=== PATIENT | female | born 1940 | race Caucasian/White ===

== ENCOUNTER 2017-01-21 09:13 | Inpatient (IN) | payer MEDICARE, OTHER ==
[~2017-01-21] VITALS: Ht 160 cm; Wt 68.1 kg
[2017-01-21] MEDS ORDERED: ATOR80TA75 PO (09:52)
[2017-01-21] MEDS ORDERED: SODIUM CHLORIDE 0.9% 1,000ML IVBOLUS ONE ×3 (10:00→13:30)
[2017-01-21] MEDS ORDERED: FAMOTIDINE 20 MG/2 ML IVP ONE (10:00)
[2017-01-21] MEDS ORDERED: SODIUM CHLORIDE FLUSH 10ML SYR IVF ONE (10:00)
[2017-01-21] MEDS ORDERED: ONDANSETRON 2MG/ML, 2ML IVPush ONE (10:00)
[2017-01-21] MEDS ORDERED: MORPHINE SULFATE 4 MG/ML, 1ML IVPush PRN (10:00)
[2017-01-21 10:29] LABS: HEMOGLOBIN 14.2 g/dL (11.7-16.4)
[2017-01-21] MEDS ORDERED: MORPHINE SULFATE 4 MG/ML, 1ML ONE (10:34)
[2017-01-21] MEDS ORDERED: ONDANSETRON 2MG/ML, 2ML ONE (10:34)
[2017-01-21] MEDS ORDERED: FAMOTIDINE 20 MG/2 ML ONE (10:36)
[2017-01-21 10:37] LABS: BLOOD UREA NITROGEN 22 mg/dL (7-18)
[2017-01-21] MEDS ORDERED: METOCLOPRAMIDE 5 MG/ML, 2ML ONE (11:24)
[2017-01-21] MEDS ORDERED: METOCLOPRAMIDE 5 MG/ML, 2ML IVPush ONE (11:30)
[2017-01-21 15:20] LABS: HEMOGLOBIN 10.1 g/dL (11.7-16.4)
[2017-01-21] MEDS ORDERED: ONDANSETRON 2MG/ML, 2ML IVP PRN (16:00)
[2017-01-21] MEDS ORDERED: ACETAMINOPHEN 325 MG TABLET PO PRN (16:00)
[2017-01-21] MEDS: SODIUM CHLORIDE 0.9% 1,000 ML IV SCH ×3 (16:01→20:50)
[2017-01-21] MEDS ORDERED: OMEP-110 PO (16:04)
[2017-01-21] MEDS: ENOXAPARIN 40 MG/0.4 ML SQ SCH (18:47)
[2017-01-21] MEDS: INSULIN REGULAR 100 UNITS/ML, 3ML VIAL SQ-INSULIN SCH ×2 (18:47→20:50)
[2017-01-21 18:51] VITALS: BP 89/53
[2017-01-21 19:32] VITALS: BP 93/51
[2017-01-21] MEDS: ATORVASTATIN 80 MG TABLET PO SCH (20:49)
[2017-01-22 02:50] VITALS: BP 110/67
[2017-01-22] MEDS: HYDROcodone/APAP 5/325 TABLET PO PRN (05:09)
[2017-01-22 05:39] LABS: HEMOGLOBIN 11.8 g/dL (11.7-16.4)
[2017-01-22 05:47] LABS: BLOOD UREA NITROGEN 12 mg/dL (7-18)
[2017-01-22] MEDS: SODIUM CHLORIDE 0.9% 1,000 ML IV SCH (06:00)
[2017-01-22 07:53] VITALS: BP 96/58
[2017-01-22] MEDS: INSULIN REGULAR 100 UNITS/ML, 3ML VIAL SQ-INSULIN SCH ×4 (08:30→20:53)
[2017-01-22] MEDS: PANTOPROZOLE 40MG TABLET PO SCH (08:34)
[2017-01-22] MEDS ORDERED: POTASSIUM CHLORIDE 20 MEQ TAB.ER.PRT PO ONE (11:00)
[2017-01-22 14:06] VITALS: BP 114/69
[2017-01-22] MEDS: ENOXAPARIN 40 MG/0.4 ML SQ SCH (16:15)
[2017-01-22 19:45] VITALS: BP 125/69
[2017-01-22] MEDS: ATORVASTATIN 80 MG TABLET PO SCH (20:52)
[2017-01-22] MEDS: TRAZODONE 50MG TABLET PO PRN (20:52)
[2017-01-22] MEDS ORDERED: SIMETHICONE 80 MG CHEW TAB PO PRN (21:00)
[2017-01-23 01:12] VITALS: BP 136/66
[2017-01-23 05:43] LABS: BLOOD UREA NITROGEN 9 mg/dL (7-18)
[2017-01-23] MEDS: INSULIN REGULAR 100 UNITS/ML, 3ML VIAL SQ-INSULIN SCH ×2 (07:00→11:00)
[2017-01-23 07:17] VITALS: BP 134/75
[2017-01-23] MEDS: PANTOPROZOLE 40MG TABLET PO SCH (08:06)
[2017-01-23 14:10] VITALS: BP 116/72
[2017-01-23] MEDS: ENOXAPARIN 40 MG/0.4 ML SQ SCH (16:08)
[2017-01-23] MEDS: HYDROcodone/APAP 5/325 TABLET PO PRN (16:09)
[2017-01-23] MEDS ORDERED: LOPERAMIDE 2 MG CAPSULE PO ONE (18:30)
[2017-01-23] MEDS ORDERED: LOPERAMIDE 2 MG CAPSULE PO PRN (18:30)
[2017-01-23 18:51] VITALS: BP 129/73
[2017-01-23] MEDS: TRAZODONE 50MG TABLET PO PRN (21:19)
[2017-01-23] MEDS: ATORVASTATIN 80 MG TABLET PO SCH (21:19)
[2017-01-23] MEDS: POTASSIUM CHLORIDE 20 MEQ TAB.ER.PRT PO SCH (21:19)
[2017-01-24 01:51] VITALS: BP 107/66
[2017-01-24 05:12] LABS: HEMOGLOBIN 11.7 g/dL (11.7-16.4)
[2017-01-24 05:25] LABS: BLOOD UREA NITROGEN 13 mg/dL (7-18)
[2017-01-24 05:28] LABS: ASPARTATE AMINO TRANSFERASE 29 U/L (15-37)
[2017-01-24 07:29] VITALS: BP 100/63
[2017-01-24] MEDS: POTASSIUM CHLORIDE 20 MEQ TAB.ER.PRT PO SCH ×3 (08:22→17:00)
[2017-01-24 13:04] VITALS: BP 133/80
[2017-01-24] MEDS: ENOXAPARIN 40 MG/0.4 ML SQ SCH (16:00)
[2017-01-24 20:10] VITALS: BP 105/64
[2017-01-24] MEDS: ATORVASTATIN 80 MG TABLET PO SCH (20:46)
[2017-01-24] MEDS: TRAZODONE 50MG TABLET PO PRN (22:23)
[2017-01-25 02:44] VITALS: BP 130/76
[2017-01-25 07:32] VITALS: BP 117/67
[2017-01-25 13:04] VITALS: BP 98/63
== END 2017-01-25 15:10 | disposition home health service (06) | DRG 392 ==
LOC: ED 13:06 → EDIP 15:36 → 4WST 17:39 → OBSVTOIN 01-25 09:53
PROVIDERS: ADMIT Internal Medicine; ATTEND Internal Medicine
DX: A08.4 Viral intestinal infection, unspecified (principal); E11.9 Type 2 diabetes mellitus without complications; E86.0 Dehydration; K21.9 Gastro-esophageal reflux disease without esophagitis; R09.02 Hypoxemia; G47.33 Obstructive sleep apnea (adult) (pediatric); I25.10 Atherosclerotic heart disease of native coronary artery without angina pectoris; E78.00 Pure hypercholesterolemia, unspecified; J44.9 Chronic obstructive pulmonary disease, unspecified; Z96.659 Presence of unspecified artificial knee joint; I95.9 Hypotension, unspecified; E87.6 Hypokalemia; Z90.710 Acquired absence of both cervix and uterus; Z80.3 Family history of malignant neoplasm of breast; Z80.1 Family history of malignant neoplasm of trachea, bronchus and lung
CPT/HCPCS: 36415; 71010; 74022; 80048; 80053; 81001; 82040; 82962; 83605; 83735; 84100; 84436; 84481; 85025; 87086; 87147; 87324; 87798; 89055; G0378; J1650; J2405; J2765; J7030; S0028

== ENCOUNTER 2017-07-28 10:02 | Emergency (ER) | payer MEDICARE, OTHER ==
[~2017-07-28] VITALS: Ht 160 cm; Wt 62.2 kg
[~2017-07-28 10:02] MED LIST: ATOR-2 PO; OMEP-110 PO
[2017-07-28 10:04] VITALS: BP 164/80
== END 2017-07-28 11:07 | disposition home or self-care (01) ==
LOC: ED 11:06
DX: S60.221A Contusion of right hand, initial encounter (principal); W19.XXXA Unspecified fall, initial encounter; Y93.89 Activity, other specified; Y92.009 Unspecified place in unspecified non-institutional (private) residence as the place of occurrence of the external cause; Y99.9 Unspecified external cause status
CPT/HCPCS: 99284